=== PATIENT | male | born 1980 | race Two or more races ===

== ENCOUNTER 2025-01-30 17:48 | Emergency (ER) | payer OTHER, SELFPAY ==
--- NOTE | ~2025-01-30 | XR_ITS ---
CLINICAL HISTORY: CP 1 view chest x-ray Comparison: None provided Findings: No consolidation or effusion. Heart size is normal. No acute fracture. IMPRESSION: 1. No acute findings. This document has been electronically signed by: Francis Posadas MD on 01/30/2025 22:52:03
--- NOTE | 2025-01-30 17:52 | ECG_ITS ---
Test Reason : chest pain Blood Pressure : */* mmHG Vent. Rate : 76 BPM Atrial Rate : 76 BPM P-R Int : 150 ms QRS Dur : 92 ms QT Int : 356 ms P-R-T Axes : 36 -4 17 degrees QTcB Int : 400 ms Normal sinus rhythm Minimal voltage criteria for LVH, may be normal variant ( R in aVL ) Borderline ECG No previous ECGs available Referred By: Day Proctor Electronically Signed By: Jah Branch
[2025-01-30 18:02] VITALS: BP 148/67; PULSE 80; RESP 18; TEMP 36.8; O2SAT 97; BMI 36.5
--- NOTE | 2025-01-30 18:02 | ED.CHESTPAIN ---
HPI - Chest Pain General Chief Complaint: Chest Pain Stated Complaint: chest pain rt side Time Seen by Provider: 01/30/25 21:01 Source: patient Mode of arrival: ambulatory Limitations: no limitations History of Present Illness ED Provider: Dr. Meaghan Giordano HPI narrative: Patient comes to the emergency room complaining of right-sided chest pain for several months, patient estimates at least 4. However, patient states that the main reason that he came today is because he is having dental pain on the right mandibular side. Patient states that he is currently taking amoxicillin, he has a dental procedure pending. However, the pain and the swelling is not getting any better. Patient states that in the past amoxicillin has not worked very well for him when he has dental infections. Patient denies fever or chills. At this time, patient has no chest pain or shortness of breath. Related Data Previous Rx's ?Medication ?Instructions ?Recorded clindamycin HCl 150 mg capsule 150 mg PO TID 7 days #21 caps 01/30/25 (Cleocin HCl) ketorolac 10 mg tablet 10 mg PO TID PRN pain #12 tabs 01/30/25 Allergies Allergy/AdvReac Type Severity Reaction Status Date / Time No Known Allergies Allergy Verified 01/30/25 18:05 Review of Systems Review of Systems: Constitutional : No Weight loss, No Fever, No Chills, No Night Sweats, No Fatigue, No Malaise ENT/Mouth : Complaining of dental pain right mandibular side,No Hearing loss, No Ear Pain, No Nasal Congestion, No Sinus Pain, No Hoarseness, No sore throat, No Rhinorrhea, No Swallowing Difficulty Eyes: No Eye Pain, No Swelling, No Redness, No Foreign Body, No Discharge, No Vision Changes Cardiovascular : complaining of chronic right-sided chest pain but not present at this time, No SOB, No Dyspnea on Exertion, No Orthopnea, No Edema, No Palpitations Respiratory : No Cough, No Sputum, No Wheezing, No Smoke Exposure, No Dyspnea Gastrointestinal : No Nausea, No Vomiting, No Diarrhea, No Constipation, No abdominal Pain, No Hematochezia, No Melena Genitourinary : no irregular bleeding, No Dysuria, No Urinary Frequency, No Hematuria, No Urinary Incontinence, No Urgency, No Flank Pain, No Urinary Flow Changes, No Hesitancy Musculoskeletal : No joint pain, No Myalgias, No Joint Swelling Skin : No Skin Lesions, No rash Neuro : No Weakness, No Numbness, No Paresthesias, No Loss of Consciousness, No Dizziness, No Headache Psych : No Anxiety/Panic, No Depression, No SI/HI/AH/VH, No Social Issues, Heme/Lymph: No Bruising, No Bleeding,No Lymphadenopathy Endocrine : No Polyuria, No Polydipsia, No Temperature Intolerance PMFSH Social History Social History Advance Directives: No Advance Directives Information Provided: No Physical Exam Exam: Exam: Appearance: Alert. Oriented X3. No acute distress. Eyes: Pupils equal, round and reactive to light. ENT: Pharynx normal. patient has caries isn't a chipped molar on the right mandibular side. No obvious abscess that could be drained Neck: Normal inspection. Neck supple. No lymph nodes noted. No crepitus CVS: Normal heart rate and rhythm. Pulses normal. Normal S1 and S2 Respiratory: No respiratory distress. Breath sounds normal. No Wheezing. No rales Abdomen: Soft and nontender. No rigidity. No distention. Skin: Skin warm and dry. Normal skin color. Normal skin turgor. Extremities: No lower extremity edema. No Lacerations. No Rash Neuro: Oriented X 3. No motor deficit. No sensory deficit. Moving all extremities. No slurred speech. CN 2 through 12 grossly intact Psych: calm, cooperative, normal affect Vital Signs: Vital Signs: Last Vital Signs Temp 98.3 F 01/30/25 21:05 Pulse 73 01/30/25 22:00 Resp 15 01/30/25 22:00 BP 141/83 H 01/30/25 22:00 Pulse Ox 93 01/30/25 22:00 O2 Del Method Room Air 01/30/25 21:05 BMI result Body Mass Index 36.5 Course Course Course Narrative: This is a Rapid Medical Examination (RME) performed by Sasha Proctor PA-C in triage. Full HPI, ROS, assessment and treatment plan per primary provider in the Main ED. Hx: 44 o M here for eval of right sided chest pain x months. also reports tooth ache to right lower jaw w/ associated facial pain. he feels his chest pain is causing his dental pain. patient is overall poor historian. Plan: labs, ekg, trop Medications Administered Discontinued Medications Generic Name Dose Route Start Last Admin Trade Name Freq PRN Reason Stop Dose Admin Clindamycin HCl 300 mg 01/30/25 22:01 01/30/25 22:24 Clindamycin Hcl 300 Mg Capsule PO 01/30/25 22:02 300 mg ONCE ONE Administration Ketorolac Tromethamine 30 mg 01/30/25 22:00 01/30/25 22:24 Ketorolac Tromethamine 30 Mg/Ml Vial IVPUSH 01/30/25 22:01 30 mg ONCE ONE Administration Medical Decision Making Medical Decision Making [facility] Narrative: my interpretation of EKG: Normal sinus rhythm, heart rate 76, no ST segment depression or elevation, no T-wave inversion, QTC 400 my interpretation of labs: No significant abnormality in patient's hematology and chemistry, slightly bumped ALT and alkaline phosphatase, troponin negative vitals stable, blood pressure 138/84, heart rate 70, respirations 12, temperature 98.3 degrees, oxygen saturation 99% on room air at this time, patient is asymptomatic, no chest pain. However, patient does have dental pain patient was given IV ketorolac since he already has a catheter in his arm. Also, patient was given the 1st dose of p.o. clindamycin in the ED. discussed with the patient to discontinue taking amoxicillin and patient is to have close follow-up with his dentist. Patient has chronic chest pain but not present at this time. It is unlikely that patient's pain is from cardiac etiology. 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 We will obtain a chest x-ray just to make sure there are no obvious abnormalities in the chest. x-rays did not show any acute abnormalities. Patient reports symptoms improvement especially with the dental pain patient asked to take probiotics and also eat more yogurt since he will be taking clindamycin for several day Differential Diagnosis Differential Diagnoses: The differential diagnosis associated with the presentation includes ( caries, dental abscess, musculoskeletal pain, ACS) Admission/Observation Consideration of admission/observation: Escalation of care including admission/observation considered ( given patient's length of symptoms and past medical history, observation was considered.) Lab Data [facility] Lab Attestation statement: I reviewed the patient's lab results. 01/30/25 20:06 01/30/25 20:06 Labs: Lab Results 01/30/25 Range/Units 20:06 WBC 9.4 (4.8-10.8) X10*3/uL RBC 5.50 (4.60-5.80) X10*6/uL Hgb 14.5 (14.0-18.0) g/dl Hct 42.5 (42.0-52.0) % MCV 77.3 L (80.0-98.0) fL MCH 26.4 L (27.0-33.0) pg MCHC 34.1 (31.0-36.0) g/dl RDW 13.8 (11.0-16.0) % Plt Count 292 (160-400) X10*3/uL MPV 8.3 L (9.4-12.4) fL Immature Gran % (Auto) 0.1 (0.0-0.4) % Neut % (Auto) 45.8 (45-73) % Lymph % (Auto) 41.6 H (20-40) % Robertson % (Auto) 8.8 (2-11) % Eos % (Auto) 3.1 (0-4) % Baso % (Auto) 0.6 (0-2) % Lymph # (Auto) 3.9 (1.2-4.9) X10*3/uL Robertson # (Auto) 0.8 (0.1-1.2) X10*3/uL Eos # (Auto) 0.3 (0.0-0.4) X10*3/uL Baso # (Auto) 0.1 (0.0-0.2) X10*3/uL Abs Immat Gran (auto) 0.01 (0.00-0.03) X10*3/uL Absolute Neuts (auto) 4.3 (2.0-8.3) x10*3/uL Absolute Nucleated RBC 0.000 (0.0-0.012) X10*3/uL Nucleated RBC % (auto) 0.0 (0.0-0.2) /100WBC Sodium 140 (135-145) mmol/L Potassium 4.3 (3.3-5.1) mmol/L Chloride 108 (96-108) mmol/L Carbon Dioxide 26 (22-29) mmol/L Anion Gap 10 L (12-20) BUN 17 H (9-16) mg/dL Creatinine 0.84 (0.5-1.4) mg/dL Estim Creat Clear Calc 132.8 Estimated GFR > 60 Random Glucose 92 (60-115) mg/dL Calcium 9.4 (8.4-10.2) mg/dL Magnesium 2.2 (1.6-2.6) mg/dL Total Bilirubin 0.4 (0.0-1.0) mg/dL AST 37 (5-37) U/L ALT 52 H (0-40) U/L Alkaline Phosphatase 119 H (39-117) U/L Troponin I High Sens < 2.7 (<3.5-35.0) ng/L Total Protein 7.5 (6.5-8.0) g/dL Albumin 4.6 (3.5-5.0) g/dL Independent Interpretation I performed an independent interpretation of an: EKG and Plain X-Ray Radiology Impression Discussion of test interpretation with radiology: I have reviewed the radiologist's reading. Radiologist Impression: No consolidation or effusion. Heart size is normal. No acute fracture. IMPRESSION: 1. No acute findings. Critical Care Time Critical Care Time Critical Care Time: Yes Total Critical Care Time: 35 Attestation: I have personally provided critical care time. Time includes review of lab data, radiology results, discussion with consultants, and monitoring for potential decompensation. Intervention performed as documented. Discharge Plan Discharge Clinical Impression: Atypical chest pain, Pain, dental Patient Disposition: Home, Self-Care Instructions: Chest Pain (ED), Toothache (ED) Additional Instructions: discontinue taking amoxicillin and start taking the new antibiotic. Please make sure that you eat plenty of yogurt or add probiotics to your diet while you are on this antibiotic. Please follow-up with your primary care physician tomorrow. If you have any worsening or new symptoms, please return to the emergency room or call 911 Prescriptions: New clindamycin HCl [Cleocin HCl] 150 mg capsule 150 mg PO TID 7 Days Qty: 21 0RF ketorolac 10 mg tablet 10 mg PO TID PRN (Reason: pain) Qty: 12 0RF Rx Instructions: do not use this medication with other NSAIDs, only Tylenol if needed Stand Alone Forms: Work/School Release Print Language: Palestinian
[2025-01-30 20:10] LABS: MANUAL DIFF FLAG NO
[2025-01-30 20:11] LABS: Hematocrit 42.5 % (42.0-52.0); Hemoglobin 14.5 g/dl (14.0-18.0); Imm Gran Abs Auto 0.01 X10*3/uL (0.00-0.03); Imm Gran Pct Auto 0.1 % (0.0-0.4); Lymphocytes Absolute Auto 3.9 X10*3/uL (1.2-4.9); Mean Corpuscular HGB Conc 34.1 g/dl (31.0-36.0); Mean Corpuscular Hemoglobin 26.4 pg (27.0-33.0); Mean Corpuscular Volume 77.3 fL (80.0-98.0); NRBC Abs Auto 0.000 X10*3/uL (0.0-0.012); NRBC Pct Auto 0.0 /100WBC (0.0-0.2); Platelet Count 292 X10*3/uL (160-400); Red Blood Count 5.50 X10*6/uL (4.60-5.80); White Blood Count 9.4 X10*3/uL (4.8-10.8)
[2025-01-30 20:25] LABS: Alanine Aminotransferase 52 U/L (0-40); Albumin Level 4.6 g/dL (3.5-5.0); Alkaline Phosphatase 119 U/L (39-117); Anion Gap 10 (12-20); Aspartate Amino Transferase 37 U/L (5-37); Blood Urea Nitrogen 17 mg/dL (9-16); Calcium 9.4 mg/dL (8.4-10.2); Carbon Dioxide 26 mmol/L (22-29); Chloride 108 mmol/L (96-108); Creatinine Clr Calc Pharmacy 132.8; Estimated Glomerular Filt Rate > 60; Magnesium 2.2 mg/dL (1.6-2.6); Potassium 4.3 mmol/L (3.3-5.1); Sodium 140 mmol/L (135-145); Total Protein 7.5 g/dL (6.5-8.0)
[2025-01-30 20:32] LABS: Troponin-I High Sensitivity < 2.7 ng/L (<3.5-35.0)
[2025-01-30 21:05] VITALS: BP 138/84; PULSE 67; PULSE 70; RESP 12; TEMP 36.8; O2SAT 99
[2025-01-30 22:00] VITALS: BP 141/83; PULSE 73; RESP 15; O2SAT 93
[2025-01-30 23:10] VITALS: BP 130/90; PULSE 75; RESP 16; TEMP 36.7; O2SAT 97
== END 2025-01-30 23:15 | disposition home or self-care (01) ==
PROVIDERS: Physician Assistant Medical; Emergency Provider Emergency Medicine; PCP Internal Medicine
DX: R07.89 Other chest pain (principal); K08.89 Other specified disorders of teeth and supporting structures
CPT/HCPCS: 36415; 71045; 80053; 83735; 84484; 85025; 93005; 96374; 99284; 99285; J1885

== ENCOUNTER → 2025-01-30 17:52 | Outpatient (BNV) | payer OTHER, SELFPAY | PROVIDERS: Emergency Provider Emergency Medicine; PCP Internal Medicine; Visit Provider Internal Medicine Cardiovascular Disease | DX: R07.89 Other chest pain (principal) | CPT/HCPCS: 93010 ==

== ENCOUNTER → 2025-01-30 21:53 | Outpatient (BNV) | payer OTHER, SELFPAY | PROVIDERS: Emergency Provider Emergency Medicine; PCP Internal Medicine; Visit Provider Radiology Diagnostic Radiology | DX: R07.89 Other chest pain (principal) | CPT/HCPCS: 71045 ==